=== PATIENT | male | born 1940 | race Caucasian/White ===

== ENCOUNTER 2020-05-21 06:43 | Outpatient (CLI) | payer MEDICARE, MEDICAID, SELFPAY ==
--- NOTE | 2020-05-23 13:37 | SLEEP_ITS ---
Home sleep test. DATE OF STUDY: 05/21/2020 ORDERING PHYSICIAN: Flora Foster MD. REASON FOR THE STUDY: Hypersomnia. HISTORY OF PRESENT ILLNESS: The patient is a 79-year-old man, 62 inches tall weighing 227 pounds with a body mass index of 29.1. He has had many years of excessive sleepiness. He has difficulty waking up on time. When he is on the road, he is falling asleep. He has been off work for 3 months recently. He mainly drives at night. He wakes up during the night at times, he has difficulty waking in the morning. He occasionally awakens from sleep feeling short of breath. He does not have heartburn or belching at night. He frequently snores, but it is not loud enough that others complain about it. He constantly has trouble sleeping with a cold. He occasionally gasps for breath at night. He frequently has breathing problems reported to him by others. He does not sweat excessively at night. He does not complain of irregular heartbeats at night. He frequently falls asleep during the day, frequently involuntarily, but not while driving. He does not have loss of muscle tone with strong emotion. He frequently has daytime difficulties due to sleepiness. He does not feel paralyzed on waking or falling asleep. He does not have vivid dreamlike scenes upon awakening or falling asleep. He constantly is afraid to go to sleep. He denies nightmares, does not have dreams any longer. He frequently has feelings of sadness, depression, and constantly feels anxious. He does not have muscular tension. He does not notice parts of his body jerking, and he does not kick at night. He frequently has crawly achy feelings in his legs and frequently has leg pain at night. He does not have morning jaw pain and does not grind his teeth at night. He is not bothered by pain during the day or at night. He does not wake up feeling stiff in the morning. He occasionally wakes up with sore achy muscles and pain in the neck and spine. He has fatigue, panic, sexual problems, memory problems, insomnia, concentration difficulties, financial problems, headaches, and depression. He is a [place] War vet and the history of things that happened to him changed his life dramatically and still impact him. Normal bedtime is around 6 a.m., taking a long time to fall asleep typically waking twice during his sleep time. During this time, he will go to the bathroom. He does drive a truck at night normally. He estimates 6 to 8 hours of sleep. He does not have a social life. He sometimes takes naps. He may have a power nap on the road and this is very effective to refreshing him. He is usually drowsy in the morning for 2 hours or longer. He feels better in the evening. PAST MEDICAL HISTORY: Hypertension, diarrhea, constipation, kidney stones. MEDICATIONS: Metoprolol 25 mg daily, low-dose aspirin 81 mg a day. HABITS: Does not smoke tobacco. Caffeine, 1 cup a day. No alcohol. DESCRIPTION OF THE STUDY: On the [place] Sleepiness Scale, the score is 18. This was conducted as a portable home sleep test using 4 channel monitoring including respiratory effort channel, snoring channel, oxygen saturation channel, and heart rate channel. The study was scored using [facility] guidelines. The duration of the study was 9 hours 28 minutes. The apnea-hypopnea index was elevated at 17, consistent with moderate sleep apnea. His RDI was 19.7. Oxygen desaturation index 14.9. Lowest desaturation 82%. He had 41 apneas, 93% of these or 38 apneas were obstructive, 7% or 3 apneas were central and he had 117 hypopneas. He had 2849 flow-limited breaths without snoring, 1300 snoring events, and 151 desaturations spending 12 minutes or 2% of the study below 88% saturation. Heart rate ranged from 46 to 87. IMPRESSION:
== END 2020-05-21 06:44 | disposition home or self-care (01) ==
LOC: ANHCSM 06:43
PROVIDERS: Visit Provider Internal Medicine Critical Care Medicine
DX: G47.33 Obstructive sleep apnea (adult) (pediatric) (principal); I10 Essential (primary) hypertension
CPT/HCPCS: 95806

== ENCOUNTER 2022-06-25 13:49 | Inpatient (IN) | payer OTHER, SELFPAY ==
[2022-06-25] VITALS (9 sets, daily range): BP systolic 94–134; BP diastolic 56–78; PULSE 74–103; RESP 16–23; TEMP 36.5–36.8; O2SAT 95–100
--- NOTE | ~2022-06-25 | CT_ITS ---
EXAMINATION: CT abdomen pelvis w con DATE: 06/25/2022 15:29 INDICATION: Hematemesis. Black stool. Lower abdominal pain. TECHNIQUE: Computed tomography (CT) of the abdomen and pelvis was performed with 100 cc Omnipaque 350 intravenous contrast. The dose-length product was 616.16 mGy-cm. Automated exposure control and iter ative reconstruction technique were employed. COMPARISON: CT dated 03/07/2006. FINDINGS: There is a 5 mm right lower lobe nodule. There is dependent atelectasis. There is a 5 mm le ft lower lobe nodule. Heart size normal. No significant pleural or pericardial effusion. The spleen, pancreas, adrenal glands are unremarkable. There are small bilateral renal cysts. Small liver cysts. There is a hiatal hernia. Nonobstructive bowel gas pattern. Colonic diverticulosis without evidence f or diverticulitis. Moderate lumbar spondylosis. IMPRESSION: 1. No findings to account for patient's symptoms. 2: Bilateral lower lobe nodules measuring 5 mm. Recommend follow-up low dose CT chest in 12 months. 3: Small hiatal hernia. Reviewed, dictated and finalized at location A.
[2022-06-25 14:31] LABS: Basophils Percent Auto 0.8 % (0.2-1.2); Eosinophils Absolute Auto 0.2 K/mm3 (0-0.3); Eosinophils Percent Auto 3.4 % (0-4.4); Hematocrit 32.7 % (42.0-52.0); Hemoglobin 10.6 g/dL (14.0-18.0); Immature Granulocyte Absolute 0.05 K/mm3 (0.00-0.031); Lymphocytes Absolute Auto 1.07 K/mm3 (0.9-3.2); Lymphocytes Percent Auto 20.5 % (18.3-44.2); Mean Corpuscular HGB Conc 32.4 g/dl (32-36); Mean Corpuscular Hemoglobin 29.7 pg (26-34); Mean Corpuscular Volume 91.6 fl (80-100); Mean Platelet Volume 9.5 fl (7.4-10.4); Monocytes Absolute Auto 0.4 K/mm3 (0.1-0.6); Monocytes Percent Auto 7.8 % (2.6-8.5); Neutrophils Absolute Auto 3.5 K/mm3 (1.3-6.7); Neutrophils Percent Auto 66.5 % (45.5-73.1); Platelet Count Result 157 k/mm3 (150-375); Red Blood Count 3.57 M/mm3 (4.6-6.20); Red Cell Distribution Width 13.8 % (11.5-14.5); White Blood Count 5.2 K/mm3 (4.5-10.0)
--- NOTE | 2022-06-25 14:33 | ED.GENADULT ---
HPI - General Adult General Chief complaint: GI Bleed <ANU Sofia Last Filed: 06/25/22 18:38> Stated complaint: coffee ground emesis <ANU Sofia Last Filed: 06/25/22 18:38> Time Seen by Provider: 06/25/22 14:23 <ANU Sofia Last Filed: 06/25/22 18:38> History of Present Illness HPI narrative: Patient is a 81-year-old male here for evaluation of an episode of hematemesis and melena today. Patient states that he woke up with some lower abdominal pain, noted that his bowel movement was black this morning, which is never happened in the past. He states he went about his day, and suddenly had an episode of emesis that appeared similar to coffee grounds prompted his ED evaluation. Denies history of alcohol use or ulcers, does use NSAIDs frequently. No fevers, chills, lightheadedness, syncope. No blood thinner use. <ANU Sofia Last Filed: 06/25/22 18:38> Related Data Home medications: Home Medications Medication Instructions Recorded Confirmed ocadpbe-wvdnfekiviakz-pxhaekxh 250 1 tablet PO Q4-6H PRN Pain 11/02/19 06/25/22 mg-250 mg-65 mg tablet (Excedrin Extra Strength) aluminum hydrox-magnesium carb 254 5 ml PO TID PRN Abdominal 06/25/22 06/25/22 mg-237.5 mg/5 mL oral suspension Discomfort (Gaviscon Extra Strength) fluoxetine 40 mg capsule 40 mg PO BID 06/25/22 06/25/22 quetiapine 25 mg tablet (Seroquel) 25 mg PO HS 06/25/22 06/25/22 <ANU Sofia Last Filed: 06/25/22 18:38> Allergies/adverse reactions: Allergies Allergy/AdvReac Type Severity Reaction Status Date / Time No Known Allergies Allergy Verified 06/25/22 15:53 <ANU Sofia Last Filed: 06/25/22 18:38> Review of Systems Review of Systems: Gen: Denies fevers or chills Eyes: Denies eye pain or visual change ENT: Denies congestion Respiratory: Denies shortness of breath or cough CV: Denies chest pain or palpitations GI: Reports abdominal pain, nausea, vomiting, melena denies burning, urgency, frequency or hematuria Musculoskeletal: Denies back pain or muscle pain Neuro: Denies numbness, tingling, weakness or focal weakness Skin: Denies rash Except as documented, all other systems reviewed and negative <Fannie West PA-C - Last Filed: 06/25/22 18:38> [facility] Past Medical History Medical History: Medical History Depression Essential hypertension Insomnia Overweight (BMI 25.0-29.9) <ANU Sofia Last Filed: 06/25/22 18:38> Surgical History Surgical History: Surgical History H/O esophagogastroduodenoscopy <Fannie West PA-C - Last Filed: 06/25/22 18:38> Family History Family History: Family History (Updated 06/25/22 @ 21:28 by Vikki Coon NP) Mother Depression Migraines Father Depression <ANU Sofia Last Filed: 06/25/22 18:38> Social History Social History: Social History (Updated 06/25/22 @ 21:29 by Vikki Coon NP) Social History: The patient has a significant other who is in a fpc in a wheelchair. He does not have a durable power state attorney. He has no children. He is a former smoker. No alcohol marijuana or illicit drugs. 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 Code status full code Smoking status: Former smoker <Fannie West PA-C - Last Filed: 06/25/22 18:38> Exam Narrative: APPEARANCE: Well appearing, no pain in distress, well-nourished. Head: Normocephalic and atraumatic. EYES: PERRLA/EOMI, conjunctivae clear NOSE: No nasal drainage EARS: External ear normal in appearance THROAT: Oropharynx is clear. Mucous membranes are moist. NECK: Supple. No adenopathy,
[2022-06-25 14:42] LABS: INR 1.3; Partial Thromboplastin Time 27.4 SECONDS (22.3-36.8); Prothrombin Time 15.5 Seconds (11.1-14.7)
[2022-06-25 14:44] LABS: Alanine Aminotransferase 17 U/L (6-50); Albumin Level 2.6 g/dL (3.5-5.1); Alkaline Phosphatase 67 U/L (38-126); Anion Gap 4 mmol/L (8-16); Aspartate Amino Transferase 24 U/L (17-59); Bilirubin,Total 0.4 mg/dL (0.2-1.3); Blood Urea Nitrogen 40 mg/dL (9-20); Calcium 7.8 mg/dL (8.4-10.2); Carbon Dioxide 27 mmol/L (22-30); Chloride 107 mmol/L (98-107); Estimated CRCL calculation 60 ml/min; Estimated Glomerular Filt Rate > 60; Glucose 102 mg/dL (65-110); Potassium 4.2 mmol/L (3.4-5.0); Sodium 138 mmol/L (137-145)
[2022-06-25] MEDS: PANTOPRAZOLE SODIUM IV 40 MG VIAL 80 MG IV PUSH (14:45)
[2022-06-25] MEDS: SODIUM CHLORIDE 0.9% IV 1,000 ML 999 ML IV CONT (15:19)
--- NOTE | 2022-06-25 15:25 | WPDANESEPPF ---
Anes - Initial Pre Proc Eval Date/Time: 06/25/22 15:25 Pre Op Diagnosis: coffee ground emesis Patient Data Age: 81 Gender: M Height: 1.85 m Weight: 101 kg Last Vital Signs Temp 36.5 C 06/25/22 13:50 Pulse 103 H 06/25/22 13:50 Resp 20 06/25/22 13:50 BP 113/78 06/25/22 13:50 Pulse Ox 98 06/25/22 13:50 O2 Del Method Room Air 06/25/22 13:50 Allergies Allergy/AdvReac Type Severity Reaction Status Date / Time No Known Allergies Allergy Verified 06/25/22 13:59 Home Medications Medication Instructions Recorded Confirmed Type amddvwy-xsybfwknwvtbz-vkacpdpq 250 1 tablet PO Q4-6H PRN Pain 11/02/19 11/02/19 History mg-250 mg-65 mg tablet (Excedrin Extra Strength) quetiapine 25 mg tablet mg 06/25/22 History Laboratory Tests 06/25/22 06/25/22 06/25/22 14:22 14:22 14:22 WBC 5.2 K/mm3 K/mm3 (4.5-10.0) RBC 3.57 M/mm3 L M/mm3 (4.6-6.20) Hgb 10.6 g/dL L g/dL (14.0-18.0) Hct 32.7 % L % (42.0-52.0) MCV 91.6 fl fl (80-100) MCH 29.7 pg pg (26-34) MCHC 32.4 g/dl g/dl (32-36) RDW 13.8 % % (11.5-14.5) Plt Count 157 k/mm3 k/mm3 (150-375) MPV 9.5 fl fl (7.4-10.4) Immature Gran % (Auto) 1.0 % H % (0-0.5) Neut % (Auto) 66.5 % % (45.5-73.1) Lymph % (Auto) 20.5 % % (18.3-44.2) [place] % (Auto) 7.8 % % (2.6-8.5) Eos % (Auto) 3.4 % % (0-4.4) Baso % (Auto) 0.8 % % (0.2-1.2) Lymph # (Auto) 1.07 K/mm3 K/mm3 (0.9-3.2) [place] # (Auto) 0.4 K/mm3 K/mm3 (0.1-0.6) Eos # (Auto) 0.2 K/mm3 K/mm3 (0-0.3) Baso # (Auto) 0.0 K/mm3 K/mm3 (0.0-0.1) Abs Immat Gran (auto) 0.05 K/mm3 H K/mm3 (0.00-0.031) Absolute Neuts (auto) 3.5 K/mm3 K/mm3 (1.3-6.7) Absolute Nucleated RBC 0.0 K/mm3 K/mm3 (0.0-0.012) Nucleated RBC % 0.0 % % (0.0-0.2) PT 15.5 Seconds H Seconds (11.1-14.7) INR 1.3 APTT 27.4 SECONDS SECONDS (22.3-36.8) Sodium 138 mmol/L mmol/L (137-145) Potassium 4.2 mmol/L mmol/L (3.4-5.0) Chloride 107 mmol/L mmol/L (98-107) Carbon Dioxide 27 mmol/L mmol/L (22-30) Anion Gap 4 mmol/L L mmol/L (8-16) BUN 40 mg/dL H mg/dL (9-20) Creatinine 1.00 mg/dL mg/dL (0.7-1.3) Estim Creat Clear Calc 60 ml/min ml/min Estimated GFR > 60 (59 - ) Glucose 102 mg/dL mg/dL (65-110) Calcium 7.8 mg/dL L mg/dL (8.4-10.2) Total Bilirubin 0.4 mg/dL mg/dL (0.2-1.3) AST 24 U/L U/L (17-59) ALT 17 U/L U/L (6-50) Alkaline Phosphatase 67 U/L U/L (38-126) Total Protein 5.0 g/dL L g/dL (6.3-8.2) Albumin 2.6 g/dL L g/dL (3.5-5.1) Patient hx anesthesia problems: none Family hx anesthesia problems: none Results Review: All pre-operative results and documents have been reviewed as part of the pre-operative evaluation. [facility] Past Medical History Medical History (Updated 06/25/22 @ 15:27 by Babar Cloud MD) Essential hypertension Overweight (BMI 25.0-29.9) Social History Social History (Updated 11/02/19 @ 09:46 by Riddhi Fox) Smoking status: Former smoker Anes - Eval Final PreProcedure Day of Procedure 06/25/22 15:25 Patient weight: obese Heart: regular rate and rhythm Lungs: clear to auscultation and normal air movement Airway: Mallampati scale class II Neurological: alert and oriented Last oral intake: >/= 8 hours ASA classification: III Emergent: no Anesthetic plan: proceed Anesthesia type and monitoring: general GIVS Results Review: All pre-operative results and documents have been reviewed as part of the pre-operative evaluation. Informed Consent: The patient's anesthetic plan and its attendant risks a
--- NOTE | 2022-06-25 15:45 | WPDGICN ---
Assessment and Plan Assessment and plan (1) Melena: Code(s): K92.1 - Melena Status: Acute Assessment and Plan: this morning he had a black stool. He has not done that before because he uses NSAIDs frequently it is most likely due to upper gastrointestinal bleeding. (2) Hematemesis: Code(s): K92.0 - Hematemesis Status: Acute Assessment and Plan: He had what he describes as coffee-ground type emesis late morning today. He denies seeing any red blood in his emesis. (3) Anemia: Code(s): D64.9 - Anemia, unspecified Status: Acute Assessment and Plan: Initial hemoglobin is 10.6. This will likely drop with rehydration. He is being typed and Screened for possible transfusion. his INR is 1.3. He is not on anticoagulants, other than the fact he uses aspirin containing products. (4) Azotemia: Code(s): R79.89 - Other specified abnormal findings of blood chemistry Status: Acute Assessment and Plan: BUN is 40 but creatinine was only 1.0. Likely this is elevated BUN secondary to gastrointestinal bleeding. Plan EGD will be done this afternoon. I explained that there is a possibility of bleeding or perforation due to the procedure itself. GI Consult Note Consult date/time: 06/25/22 15:45 HPI: Feng Calderon is a 81 year old male Who noted that when he had bowel movement this morning that was pitch black. He went about his day And had some breakfast. Then late morning he vomited and saw coffee-ground material in his emesis. He denies being lightheaded or short of breath. He has not had gastrointestinal bleeding in the past. He does take Excedrin on a regular basis for headaches also takes other NSAIDs regularly. Review of Systems Review of Systems: All systems reviewed & are unremarkable except as noted in HPI and below PMFSH Past Medical History Medical History Essential hypertension Overweight (BMI 25.0-29.9) Social History Social History Smoking status: Former smoker Meds Home Medications and Allergies Home Medications Medication Instructions Recorded Confirmed Type ddoghrd-jpegfcmfzpnfi-nmwjltze 250 1 tablet PO Q4-6H PRN Pain 11/02/19 11/02/19 History mg-250 mg-65 mg tablet (Excedrin Extra Strength) quetiapine 25 mg tablet mg 06/25/22 History Allergies Allergy/AdvReac Type Severity Reaction Status Date / Time No Known Allergies Allergy Verified 06/25/22 13:59 Vital Signs Vital Signs - 24 hr 06/25/22 13:50 06/25/22 14:16 Temperature 36.5 C Pulse Rate 103 H 94 Respiratory Rate 20 23 H Blood Pressure 113/78 94/60 L Pulse Oximetry 98 Oxygen Delivery Room Air Exam Const: General: alert Orientation/consciousness: patient oriented x3 Resp: Auscultation: clear to auscultation bilaterally Cardio: Rhythm: regular rhythm GI: GI Palp: Yes Soft to palpation and No Tenderness to palpation present (GI) Auscultation: normal bowel sounds Skin: General skin exam: normal color and no ecchymosis Neuro: General: patient oriented x3 Results Labs CBC & Chem 7: 06/25/22 14:22 06/25/22 14:22 Labs: Short CBC 06/25/22 Range/Units 14:22 WBC 5.2 (4.5-10.0) K/mm3 Hgb 10.6 L (14.0-18.0) g/dL Hct 32.7 L (42.0-52.0) % Plt Count 157 (150-375) k/mm3 BMP 06/25/22 14:22 Sodium 138 Potassium 4.2 Chloride 107 Carbon Dioxide 27 BUN 40 H Creatinine 1.00 Glucose 102 Calcium 7.8 L Liver Function 06/25/22 Range/Units 14:22 Total Bilirubin 0.4 (0.2-1.3) mg/dL AST 24 (17-59) U/L ALT 17 (6-50) U/L Alkaline Phosphatase 67 (38-126) U/L Albumin 2.6 L (3.5-5.1) g/dL AMG Consult Billing Inpatient Consult [id number] Consult Mod High
[2022-06-25] MEDS: LACTATED RINGERS 1,000 ML 150 ML IV CONT (16:24)
[2022-06-25] MEDS: ONDANSETRON INJ 4 MG/2 ML VIAL IV PUSH ×2 (16:58→21:15)
--- NOTE | 2022-06-25 17:02 | PC.NURSE ---
Report received from Vikki briggs.
--- NOTE | 2022-06-25 17:02 | PC.NURSE ---
Vikki stated will attempt to wean to Ra prior to bring to floor currently 98% 2 L NC
--- NOTE | 2022-06-25 17:21 | PC.NURSE ---
This patient, Feng Calderon, was admitted to 3 [facility] Surg Room 326-01. Patient/family oriented to hospital policies and general routines including ID bracelet, bed and alarms, visiting hours, pain management, procedures, bathroom and other care routines, personal items, smoking policy, room service/diet, and visiting hours. Information on how to activate the Rapid Response Team has been discussed. Patient/Family are encouraged to report perceived risks to care and to ask questions if they do not understand what they are told or what they should do. arrived at 1715 report received per Vikki JOHNSON gi lab
[2022-06-25] MEDS: SODIUM CHLORIDE 0.9% IV 1,000 ML 125 ML IV CONT (17:42)
--- NOTE | 2022-06-25 17:50 | PC.NURSE ---
home medication sent to pharmacy for verifying
--- NOTE | 2022-06-25 18:30 | PC.NURSE ---
informed MD Dailey pt is still having bloody dark stools
[2022-06-25 18:31] LABS: Glucose Point of Care 100 mg/dl (65-105)
--- NOTE | 2022-06-25 18:32 | PC.NURSE ---
called to informed Vikki BATISTA pt provider about bloody stools, trending H&H qhrs starting now.
[2022-06-25 19:29] LABS: Hematocrit 33.3 % (42.0-52.0); Hemoglobin 10.9 g/dL (14.0-18.0)
[2022-06-25] MEDS: METOCLOPRAMIDE HCL INJ 10 MG/2 ML VIAL 5 MG IV PUSH (20:14)
--- NOTE | 2022-06-25 21:21 | PM.IMHP ---
H&P: HPI History of Present Illness Date/Time: 06/25/22 21:21 Chief Complaint: Coffee brown emesis Narrative: This is a 81 a year old male patient who came in today for evaluation of hematemesis and melena today. The patient has been taking NSAIDs an aspirin. The patient stated that he woke up with some lower abdominal pain and that his bowel movement was black this morning. He also vomited coffee-ground emesis that prompted him to come to the emergency room for evaluation. He denies any previous history of any alcohol use or any previous peptic ulcers. He is not on any blood thinners. He complains of nausea. GI has been consulted the patient was taken directly to the GI lab for an EGD. The patient was found to have a gastric ulcer and 2 resolution clips were placed. The patient was started on IV fluids in the emergency room and given a dose of Protonix. His H&H initially was 10.6 and 32.7 and a repeat H&H is 10.9 and 33.3. The patient is being admitted to observation and then changed to inpatient status on the date of service of 06/25/2022 Review of Systems Review of Systems: See HPI All systems reviewed & are unremarkable except as noted in HPI and below Constitutional: Constitutional: Reports as per HPI and Reports no additional constitutional complaints Eyes: Eyes: Reports as per HPI and Reports no additional eye complaints ENT: Reports system reviewed and no additional complaints, except as documented and Reports Normal hearing present Cardiovascular: Cardiovascular: Reports no additional cardiovascular complaints Respiratory: Respiratory: Reports no additional respiratory complaints and Reports no additional respiratory complaints Gastrointestinal: Gastrointestinal: Reports as per HPI and Reports no additional gastrointestinal complaints Musculoskeletal: Musculoskeletal: Reports no additional musculoskeletal complaints Integumentary/Breasts: Skin/Breast: Reports system reviewed and no additional complaints, except as docu and Reports as per HPI Neurologic: Reports system reviewed and no additional complaints, except as documented, Reports as per HPI and Reports Normal hearing present Psychiatric: Psychiatric: Reports no additional psychiatric complaints and Reports as per HPI Endocrine: Endocrine: Reports no additional endocrine complaints Hematologic/Lymphatic: Hematologic/Lymphatic: Reports no additional hematologic/lymphatic complaints Allergic/Immunologic: Allergic/Immunologic: Reports no additional allergic/immunologic complaints [facility] Past Medical History Medical History Depression Essential hypertension Insomnia Overweight (BMI 25.0-29.9) Surgical History Surgical History H/O esophagogastroduodenoscopy Family History Family History (Updated 06/25/22 @ 21:28 by Vikki Coon NP) Mother Depression Migraines Father Depression Social History Social History (Updated 06/25/22 @ 21:29 by Vikki Coon NP) Social History: The patient has a significant other who is in a half-way in a wheelchair. He does not have a durable power criminal attorney. He has no children. He is a former smoker. No alcohol marijuana or illicit drugs. 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 Code status full code Smoking status: Former smoker Meds Home Medications and Allergies Home Medications Medication Instructions Recorded Confirmed Type xmtorqe-koshazoojabjh-wtpmbyil 250 1 tablet PO Q4-6H PRN Pain 11/02/19 06/25/22 History mg-250 mg-65 mg tablet (Excedrin Extra Strength) aluminum hydrox-magnesium carb 254 5 ml PO TID PRN Abdominal 06/25/22 06/25/22 History mg-237.5 mg/5 mL oral suspension Discomfort (Gaviscon Extra Strength) fluoxetine 40 mg capsule 40 mg PO BID 06/25/22 0
--- NOTE | 2022-06-25 21:32 | PHAR ---
FLUOXETINE 40MG BID SEROQUEL 25MG HS BOTH HOME MEDS VERIFIED
[2022-06-25 23:33] LABS: Glucose Point of Care 103 mg/dl (65-105)
[2022-06-26 01:06] LABS: Hematocrit 32.3 % (42.0-52.0); Hemoglobin 10.6 g/dL (14.0-18.0)
[2022-06-26] MEDS: ONDANSETRON INJ 4 MG/2 ML VIAL IV PUSH (03:12)
[2022-06-26] MEDS: SODIUM CHLORIDE 0.9% IV 1,000 ML 125 ML IV CONT ×2 (03:12→10:11)
[2022-06-26 05:55] LABS: Glucose Point of Care 106 mg/dl (65-105)
[2022-06-26 06:45] VITALS: BP 115/60; PULSE 91; RESP 16; TEMP 36.8; O2SAT 93
[2022-06-26 06:53] LABS: Basophils Absolute Auto 0.1 K/mm3 (0.0-0.1); Basophils Percent Auto 0.4 % (0.2-1.2); Eosinophils Percent Auto 0.1 % (0-4.4); Hematocrit 29.2 % (42.0-52.0); Hemoglobin 9.7 g/dL (14.0-18.0); Immature Granulocyte Absolute 0.08 K/mm3 (0.00-0.031); Immature Granulocyte Percent A 0.6 % (0-0.5); Lymphocytes Absolute Auto 1.24 K/mm3 (0.9-3.2); Lymphocytes Percent Auto 9.7 % (18.3-44.2); Mean Corpuscular HGB Conc 33.2 g/dl (32-36); Mean Corpuscular Hemoglobin 29.9 pg (26-34); Mean Corpuscular Volume 90.1 fl (80-100); Mean Platelet Volume 9.5 fl (7.4-10.4); Monocytes Absolute Auto 0.8 K/mm3 (0.1-0.6); Monocytes Percent Auto 6.2 % (2.6-8.5); Neutrophils Absolute Auto 10.6 K/mm3 (1.3-6.7); Platelet Count Result 154 k/mm3 (150-375); Red Blood Count 3.24 M/mm3 (4.6-6.20); Red Cell Distribution Width 13.8 % (11.5-14.5); White Blood Count 12.7 K/mm3 (4.5-10.0)
[2022-06-26 07:25] LABS: Alanine Aminotransferase 17 U/L (6-50); Albumin Level 2.9 g/dL (3.5-5.1); Alkaline Phosphatase 61 U/L (38-126); Anion Gap 5 mmol/L (8-16); Aspartate Amino Transferase 24 U/L (17-59); Blood Urea Nitrogen 35 mg/dL (9-20); Carbon Dioxide 25 mmol/L (22-30); Chloride 106 mmol/L (98-107); Estimated CRCL calculation 60 ml/min; Estimated Glomerular Filt Rate > 60; Glucose 107 mg/dL (65-110); Potassium 4.1 mmol/L (3.4-5.0); Sodium 136 mmol/L (137-145)
[2022-06-26] MEDS: PANTOPRAZOLE SODIUM IV 40 MG VIAL IV PUSH ×2 (08:43→22:51)
--- NOTE | 2022-06-26 09:23 | WPDANESPN ---
Anes - Prog Note Post-Op Date/Time: 06/26/22 09:23 Cardiovascular status: normal Respiratory status: normal Airway patency: baseline Mental status: baseline Post-Op hydration status: normal Vital Signs: Last Vital Signs Temp 98.3 F 06/26/22 06:45 Pulse 91 06/26/22 06:45 Resp 16 06/26/22 06:45 BP 115/60 06/26/22 06:45 Pulse Ox 93 06/26/22 06:45 O2 Del Method Room Air 06/25/22 20:00 O2 Flow Rate 2 06/25/22 16:53 Pain Score (VAS): 0 I/O: Intake & Output 06/25/22 06/26/22 06/26/22 23:59 07:59 15:59 Intake Total 600 1000 Output Total 500 950 Balance 100 50 Laboratory Tests 06/26/22 06:35 06/26/22 06:35 06/25/22 06/25/22 06/25/22 14:22 14:22 14:22 WBC 5.2 RBC 3.57 L Hgb 10.6 L Hct 32.7 L MCV 91.6 MCH 29.7 MCHC 32.4 RDW 13.8 Plt Count 157 MPV 9.5 Immature Gran % (Auto) 1.0 H Neut % (Auto) 66.5 Lymph % (Auto) 20.5 [place] % (Auto) 7.8 Eos % (Auto) 3.4 Baso % (Auto) 0.8 Lymph # (Auto) 1.07 [place] # (Auto) 0.4 Eos # (Auto) 0.2 Baso # (Auto) 0.0 Abs Immat Gran (auto) 0.05 H Absolute Neuts (auto) 3.5 Absolute Nucleated RBC 0.0 Nucleated RBC % 0.0 PT 15.5 H INR 1.3 APTT 27.4 Sodium 138 Potassium 4.2 Chloride 107 Carbon Dioxide 27 Anion Gap 4 L BUN 40 H Creatinine 1.00 Estim Creat Clear Calc 60 Estimated GFR > 60 Glucose 102 POC Capillary Glucose Calcium 7.8 L Ferritin Total Bilirubin 0.4 AST 24 ALT 17 Alkaline Phosphatase 67 Total Protein 5.0 L Albumin 2.6 L Blood Type Antibody Screen 06/25/22 06/25/22 06/25/22 14:22 18:27 19:24 WBC RBC Hgb 10.9 L Hct 33.3 L MCV MCH MCHC RDW Plt Count MPV Immature Gran % (Auto) Neut % (Auto) Lymph % (Auto) [place] % (Auto) Eos % (Auto) Baso % (Auto) Lymph # (Auto) [place] # (Auto) Eos # (Auto) Baso # (Auto) Abs Immat Gran (auto) Absolute Neuts (auto) Absolute Nucleated RBC Nucleated RBC % PT INR APTT Sodium Potassium Chloride Carbon Dioxide Anion Gap BUN Creatinine Estim Creat Clear Calc Estimated GFR Glucose POC Capillary Glucose 100 Calcium Ferritin Total Bilirubin AST ALT Alkaline Phosphatase Total Protein Albumin Blood Type O Positive Antibody Screen Negative 06/25/22 06/26/22 06/26/22 23:30 00:34 00:34 WBC RBC Hgb 10.6 L Hct 32.3 L MCV MCH MCHC RDW Plt Count MPV Immature Gran % (Auto) Neut % (Auto) Lymph % (Auto) [place] % (Auto) Eos % (Auto) Baso % (Auto) Lymph # (Auto) [place] # (Auto) Eos # (Auto) Baso # (Auto) Abs Immat Gran (auto) Absolute Neuts (auto) Absolute Nucleated RBC Nucleated RBC % PT INR APTT Sodium Potassium Chloride Carbon Dioxide Anion Gap BUN Creatinine Estim Creat Clear Calc Estimated GFR Glucose POC Capillary Glucose 103 Calcium Ferritin 116.00 Total Bilirubin AST ALT Alkaline Phosphatase Total Protein Albumin Blood Type Antibody Screen 06/26/22 06/26/22 06/26/22 05:51 06:35 06:35 WBC 12.7 H RBC 3.24 L Hgb 9.7 L Hct 29.2 L MCV 90.1 MCH 29.9 MCHC 33.2 RDW 13.8 Plt Count 154 MPV 9.5 Immature Gran % (Auto) 0.6 H Neut % (Auto) 83.0 H Lymph % (Auto) 9.7 L [place] % (Auto) 6.2 Eos % (Auto) 0.1 Baso % (Auto) 0.4 Lymph # (Auto) 1.24 [place] # (Auto) 0.8 H Eos # (Auto) 0.0 Baso # (Auto) 0.1 Abs Immat Gran (auto) 0.08 H Absolute Neuts (auto) 10.6 H Absolute Nucleated RBC 0.0 Nucleated RBC % 0.0 PT INR APTT Sodium 136 L Potassium 4.1 Chloride 106 Carbon Dioxide 25 Anion Gap 5 L BUN 35 H Creatinine 1.00
--- NOTE | 2022-06-26 11:00 | PM.IMPN ---
Progress Note: A&P Assessment and Plan (1) Upper GI bleed: Code(s): K92.2 - Gastrointestinal hemorrhage, unspecified Status: Acute Assessment and Plan: -the patient was taken to the GI lab and had an EGD. Two resolution clips were placed. -patient is NPO except for ice chips. -H&H every 6 hours. -GI to follow -continue with PPI -home Gaviscon on hold at this time -continue with IV fluid. -avoid anything with aspirin and avoid NSAIDs (2) Insomnia: Code(s): G47.00 - Insomnia, unspecified Status: Acute Assessment and Plan: -continue home Seroquel (3) Depression: Code(s): F32.A - Depression, unspecified Status: Acute Assessment and Plan: -continue with his fluoxetine. -trend mood (4) Anemia: Code(s): D64.9 - Anemia, unspecified Status: Acute Assessment and Plan: -current H&H 9.7/29.2 -H&H every 6 hours. -appears to be acute blood loss anemia -anemia labs in a.m. -trend labs -transfuse if hemoglobin less than 7 Time Spent With Patient Time with patient: Greater than 35 minutes Subjective Date/time seen: 06/26/22 12:42 Interval history: 06/26/22 1100 Patient was lying in bed. Patient states that he feels okay today. His biggest complaint is that he is hungry. He denies any pain, chest pain, shortness of breath, nausea, vomiting, diarrhea, constipation. He was more interested in his nasal spray as he said that he is having congestion without it. Hemoglobin hematocrit are stable today at 9.7/29.2. Will continue to trend q.6H. 06/25/22? 21:21 This is a 81 a year old male patient who came in today for evaluation of hematemesis and melena today.? The patient has been taking NSAIDs an aspirin.? The patient stated that he woke up with some lower abdominal pain and that his bowel movement was black this morning.? He also vomited coffee-ground emesis that prompted him to come to the emergency room for evaluation.? He denies any previous history of any alcohol use or any previous peptic ulcers.? He is not on any blood thinners.? He complains of nausea.? GI has been consulted the patient was taken directly to the GI lab for an EGD.? The patient was found to have a gastric ulcer and 2 resolution clips were placed.? The patient was started on IV fluids in the emergency room and given a dose of Protonix.? His H&H initially was 10.6 and 32.7 and a repeat H&H is 10.9 and 33.3.? The patient is being admitted to observation and then changed to inpatient status on the date of service of 06/25/2022 Review of Systems Review of Systems: All systems reviewed & are unremarkable except as noted in HPI and below Exam Const: General: cooperative, healthy appearing, comfortable, no acute distress, well developed, alert, awake and Physically active Nutritional Appearance: average body habitus and well nourished Orientation/consciousness: oriented to person, oriented to place, oriented to time and patient oriented x3 Limitations: no limitations HENMT: Head: normal to inspection, No palpable skull fracture present, normocephalic, atraumatic and abrasion Ears: hearing grossly normal bilaterally and external ears normal General nose exam: Normal external nose present and Normal nares present Eyes: General: appearance normal, both eyes and all related structures Alignment and Position: alignment normal Periorbital: periorbital findings normal Eyelids: eyelids normal Sclera: sclerae normal Pupils: Equal, round and reactive pupils present EOM: EOMs intact bilaterally Neck: Neck: normal visual inspection, full ROM, no lymphadenopathy, trachea midline and supple Chest: Chest palpation & inspection: normal inspection of the chest Resp: Effort & Inspection: normal respiratory effort Auscultation: clear to auscultation bilaterally Cardio: Palpation: normal PMI Rate: regular rate Rhythm: regular rhythm Heart sounds: S1
[2022-06-26 11:38] LABS: Glucose Point of Care 99 mg/dl (65-105)
[2022-06-26 12:38] LABS: Hematocrit 26.5 % (42.0-52.0); Hemoglobin 8.9 g/dL (14.0-18.0)
[2022-06-26 14:00] VITALS: BP 122/67; PULSE 95; RESP 16; TEMP 37.2; O2SAT 96
--- NOTE | 2022-06-26 14:43 | WPDGIPROGNO ---
Progress Note: A&P Assessment and Plan (1) Gastric ulcer: Code(s): K25.9 - Gastric ulcer, unspecified as acute or chronic, without hemorrhage or perforation Status: Acute Assessment and Plan: no more signs of bleeding, treated with clips yesterday ok to resume diet monitor for any sign of bleeding trend h/h iv protonix egd in 6 weeks (2) Upper GI bleed: Code(s): K92.2 - Gastrointestinal hemorrhage, unspecified Status: Acute (3) Hematemesis: Code(s): K92.0 - Hematemesis Status: Acute Assessment and Plan: resolved (4) Acute blood loss anemia: Code(s): D62 - Acute posthemorrhagic anemia Status: Acute Assessment and Plan: trend h/h Subjective Date/time seen: 06/26/22 14:43 Interval history: egd yesterday with non-bleeding gastric ulcer treated with clipsx2. Patient denies any pain or more bleeding, he is comfortable and is hungry (still npo) Review of Systems Review of Systems: All systems reviewed & are unremarkable except as noted in HPI and below Exam Const: General: comfortable and no acute distress HENMT: General nose exam: Normal nares present Eyes: General: appearance normal, both eyes and all related structures Neck: Neck: no JVD Resp: Auscultation: clear to auscultation bilaterally Cardio: Rate: regular rate Rhythm: regular rhythm GI: Inspection: non-distended GI Palp: Yes Soft to palpation Skin: General skin exam: normal color Neuro: General: gait normal Speech: normal speech Extrem: General: normal to inspection Psych: Mental Status: mental status grossly normal Objective Data Vital Signs Vital Signs: Vital Signs - 24 hr 06/25/22 15:55 06/25/22 15:00 06/25/22 15:35 Temperature Pulse Rate 76 96 87 Respiratory Rate 20 16 16 Blood Pressure 134/63 96/67 L 133/72 Pulse Oximetry 95 98 98 Oxygen Delivery Room Air Oxygen Flow Rate 06/25/22 16:33 06/25/22 16:43 06/25/22 16:53 Temperature Pulse Rate 76 74 89 Respiratory Rate 18 20 20 Blood Pressure 103/56 L 123/72 124/71 Pulse Oximetry 98 100 100 Oxygen Delivery Nasal Cannula Nasal Cannula Nasal Cannula Oxygen Flow Rate 4 2 2 06/25/22 20:00 06/25/22 22:07 06/26/22 06:45 Temperature 98.2 F 98.3 F Pulse Rate 101 H 91 Respiratory Rate 18 16 Blood Pressure 114/69 115/60 Pulse Oximetry 96 93 Oxygen Delivery Room Air Oxygen Flow Rate 06/26/22 08:40 06/26/22 14:00 Temperature 99.0 F Pulse Rate 95 Respiratory Rate 16 Blood Pressure 122/67 Pulse Oximetry 96 Oxygen Delivery Room Air Oxygen Flow Rate Intake/Output Intake/Output: Intake & Output 06/23/22 06/24/22 06/25/22 06/26/22 23:59 23:59 23:59 23:59 Intake Total 600 2000 Output Total 500 950 Balance 100 1050 Meds/Results Medications: Active Medications Generic Name Dose Route Start Last Admin Trade Name Freq PRN Reason Stop Dose Admin Diphenhydramine HCl 25 mg 06/25/22 21:19 Diphenhydramine Hcl Inj 50 Mg/Ml Vial IV PUSH Q4H PRN Itching and or insomnia Home Med 1 each 06/25/22 21:00 06/26/22 11:00 Home Med Fluoxetine Hcl 40 Mg Capsule PO 07/25/22 20:59 1 each Q12HR DILMA Administration Home Med 1 each 06/26/22 21:00 Home Medication Quetiapine 25mg Tablet PO 07/26/22 20:59 HS DILMA Sodium Chloride 1,000 mls @ 75 mls/hr 06/25/22 16:35 06/26/22 14:37 Normal Saline Iv IV CONT 75 mls/hr .[id number] DILMA Infusion Ondansetron HCl 4 mg 06/25/22 16:35 06/26/22 03:12 Ondansetron Inj 4 Mg/2 Ml Vial IV PUSH 4 mg Q4H PRN Administration Nausea Pantoprazole Sodium 40 mg 06/26/22 09:00 06/26/22 08:43 Pantoprazole Sodium Iv 40 Mg Vial IV PUSH 40 mg Q12HR DILMA Administration Radiology Results: ITS Impressions Abdomen/Pelvis CT 06/25/22 15:41 IMPRESSION: 1. No findings to account for patient's symptoms. 2: Bilateral lower lobe nodules measuring 5 mm. Recommend follow-up
[2022-06-26 18:01] VITALS: BMI 32.0
[2022-06-26 19:08] LABS: Hematocrit 26.1 % (42.0-52.0); Hemoglobin 8.7 g/dL (14.0-18.0)
[2022-06-26 20:40] VITALS: PULSE 97; RESP 20; O2SAT 98
[2022-06-26] MEDS: SODIUM CHLORIDE 0.9% IV 1,000 ML 75 ML IV CONT (20:43)
[2022-06-26 22:00] VITALS: BP 135/72; PULSE 97; RESP 20; TEMP 36.6; O2SAT 98
[2022-06-27] MEDS: ACETAMINOPHEN 325 MG TABLET 650 MG PO (05:50)
[2022-06-27 06:00] VITALS: BP 125/71; PULSE 100; RESP 20; TEMP 36.6; O2SAT 91
[2022-06-27 06:18] LABS: Transferrin 108 mg/dL (206-381)
[2022-06-27 06:45] LABS: Iron 55 ug/dL (49-181)
[2022-06-27 06:54] LABS: Percent Iron Saturation 30 % (20-50)
[2022-06-27 07:17] LABS: Folic Acid 5.4 ng/mL (2.76->20)
[2022-06-27 08:35] LABS: Basophils Percent Auto 0.6 % (0.2-1.2); Eosinophils Absolute Auto 0.1 K/mm3 (0-0.3); Eosinophils Percent Auto 2.8 % (0-4.4); Hematocrit 24.7 % (42.0-52.0); Hemoglobin 8.2 g/dL (14.0-18.0); Immature Granulocyte Absolute 0.04 K/mm3 (0.00-0.031); Immature Granulocyte Percent A 0.8 % (0-0.5); Lymphocytes Absolute Auto 0.99 K/mm3 (0.9-3.2); Lymphocytes Percent Auto 19.8 % (18.3-44.2); Mean Corpuscular HGB Conc 33.2 g/dl (32-36); Mean Corpuscular Hemoglobin 30.4 pg (26-34); Mean Corpuscular Volume 91.5 fl (80-100); Mean Platelet Volume 10.4 fl (7.4-10.4); Monocytes Absolute Auto 0.3 K/mm3 (0.1-0.6); Monocytes Percent Auto 5.8 % (2.6-8.5); Neutrophils Absolute Auto 3.5 K/mm3 (1.3-6.7); Neutrophils Percent Auto 70.2 % (45.5-73.1); Platelet Count Result 124 k/mm3 (150-375); Red Cell Distribution Width 14.1 % (11.5-14.5)
[2022-06-27 08:46] LABS: Alanine Aminotransferase 16 U/L (6-50); Albumin Level 2.5 g/dL (3.5-5.1); Alkaline Phosphatase 61 U/L (38-126); Anion Gap 5 mmol/L (8-16); Aspartate Amino Transferase 24 U/L (17-59); Bilirubin,Total 0.6 mg/dL (0.2-1.3); Blood Urea Nitrogen 20 mg/dL (9-20); Carbon Dioxide 25 mmol/L (22-30); Chloride 106 mmol/L (98-107); Estimated CRCL calculation 63 ml/min; Estimated Glomerular Filt Rate > 60; Glucose 100 mg/dL (65-110); Potassium 3.7 mmol/L (3.4-5.0); Sodium 136 mmol/L (137-145)
--- NOTE | 2022-06-27 09:15 | PM.DS ---
DS: Admitting Diagnosis Discharge Date 06/27/2215 Admitting Diagnosis GI bleed DS: Discharge Diagnosis Discharge Diagnosis (1) Upper GI bleed: Code(s): K92.2 - Gastrointestinal hemorrhage, unspecified Status: Acute Assessment and Plan: -the patient was taken to the GI lab and had an EGD. Two resolution clips were placed. -Diet advanced and patient tolerating food -H&H every 6 hours. -GI to follow -continue with PPI -home Gaviscon on hold at this time -continue with IV fluid. -avoid anything with aspirin and avoid NSAIDs (2) Insomnia: Code(s): G47.00 - Insomnia, unspecified Status: Acute Assessment and Plan: -continue home Seroquel (3) Depression: Code(s): F32.A - Depression, unspecified Status: Acute Assessment and Plan: -continue with his fluoxetine. -trend mood (4) Anemia: Code(s): D64.9 - Anemia, unspecified Status: Acute Assessment and Plan: -current H&H 8.2/24.7 -H&H every 6 hours. -appears to be acute blood loss anemia -anemia labs in a.m. -trend labs -transfuse if hemoglobin less than 7 DS: Summary Hospital Course Hospital Course: patient is 81-year-old male with past medical history of anxiety, depression, hypertension who presented to the ED with complaints hematocrit this and melena. Patient had been noted to to take NSAIDs and every day. Upon arrival it was noted that the patient was having GI bleed. GI was consulted and was taken to have an EGD. Upon examination patient was noted have a gastric ulcer and 2 resolution clips were placed. Patient was started on IV fluids and was given Protonix. H&H initially was 10.6/32.7. Currently H&H is 8.2/24.7. Patient denies any current complaints and is eating okay. He did state that he has no energy however According to him he is not a morning person. H&H has been on trend with no consistent drop. Anemia labs are drawn and shown iron 55, TIBC 186, % saturation 30, transferrin 108, ferritin 148, B12 240 folate 5.4. Patient remained stable per labs and vital signs for discharge at this time. Patient will be returning home where he has a caregiver. Patient will need an EGD in 6 weeks and will need to follow up with Dr. Dailey in the office. Time spent discussing smoking cessation with patient: more than 10 minutes Status at Discharge Functional status at discharge: uses cane/walker Overall status at discharge: patient is progressing back to baseline Time Spent with Patient Time attestation: Total time spent providing and/or coordinating discharge services: 36 minutes Time spent: Greater than 30 minutes Specific discharge activities: Diagnostic testing, chart review, developing a treatment plan, education, care coordination documentation, physical exam, result review Exam Const: General: cooperative, healthy appearing, comfortable, no acute distress, well developed, alert, awake and Physically active Nutritional Appearance: average body habitus and well nourished Orientation/consciousness: oriented to person, oriented to place, oriented to time and patient oriented x3 Limitations: no limitations HENMT: Head: normal to inspection, No palpable skull fracture present, normocephalic, atraumatic and abrasion Ears: hearing grossly normal bilaterally and external ears normal General nose exam: Normal external nose present and Normal nares present Eyes: General: appearance normal, both eyes and all related structures Alignment and Position: alignment normal Periorbital: periorbital findings normal Eyelids: eyelids normal Sclera: sclerae normal Pupils: Equal, round and reactive pupils present EOM: EOMs intact bilaterally Neck: Neck: normal visual inspection, full ROM, no lymphadenopathy, trachea midline and supple Chest: Chest palpation & inspection: normal inspection of the chest Resp: Effort & Inspection: normal respiratory effor
[2022-06-27] MEDS: PANTOPRAZOLE SODIUM IV 40 MG VIAL IV PUSH (09:19)
[2022-06-27] MEDS: SODIUM CHLORIDE 0.9% IV 1,000 ML 75 ML IV CONT (10:53)
[2022-06-27 11:55] LABS: Hematocrit 24.4 % (42.0-52.0); Hemoglobin 8.1 g/dL (14.0-18.0)
--- NOTE | 2022-06-27 12:23 | WPDGIPROGNO ---
Progress Note: A&P Assessment and Plan (1) Gastric ulcer: Code(s): K25.9 - Gastric ulcer, unspecified as acute or chronic, without hemorrhage or perforation Status: Acute Assessment and Plan: no more signs of bleeding, treated with clips tolerating diet hb low but stable he can go home with protonix twice daily and repeat egd in 6 weeks (2) Upper GI bleed: Code(s): K92.2 - Gastrointestinal hemorrhage, unspecified Status: Acute Assessment and Plan: resolved (3) Hematemesis: Code(s): K92.0 - Hematemesis Status: Acute Assessment and Plan: resolved (4) Acute blood loss anemia: Code(s): D62 - Acute posthemorrhagic anemia Status: Acute Assessment and Plan: relatively stable h/h Subjective Date/time seen: 06/27/22 12:23 Interval history: no more signs of bleeding, he is doing well and tolerated diet Review of Systems Review of Systems: All systems reviewed & are unremarkable except as noted in HPI and below Exam Const: General: comfortable and no acute distress HENMT: General nose exam: Normal nares present Eyes: General: appearance normal, both eyes and all related structures Neck: Neck: no JVD Resp: Auscultation: clear to auscultation bilaterally Cardio: Rate: regular rate Rhythm: regular rhythm GI: Inspection: non-distended GI Palp: Yes Soft to palpation Skin: General skin exam: normal color Neuro: General: gait normal Speech: normal speech Extrem: General: normal to inspection Psych: Mental Status: mental status grossly normal Objective Data Vital Signs Vital Signs: Vital Signs - 24 hr 06/26/22 14:00 06/26/22 22:00 06/26/22 20:40 Temperature 99.0 F 97.9 F Pulse Rate 95 97 97 Respiratory Rate 16 20 20 Blood Pressure 122/67 135/72 Pulse Oximetry 96 98 98 Oxygen Delivery Room Air 06/27/22 06:00 06/27/22 09:20 Temperature 97.8 F Pulse Rate 100 Respiratory Rate 20 Blood Pressure 125/71 Pulse Oximetry 91 Oxygen Delivery Room Air Intake/Output Intake/Output: Intake & Output 06/24/22 06/25/22 06/26/22 06/27/22 23:59 23:59 23:59 23:59 Intake Total 600 3360 1815 Output Total 500 1480 550 Balance 100 1880 1265 Meds/Results Medications: Active Medications Generic Name Dose Route Start Last Admin Trade Name Lexa PRN Reason Stop Dose Admin Acetaminophen 650 mg 06/27/22 04:36 06/27/22 05:50 Acetaminophen 325 Mg Tablet PO 650 mg Q4H PRN Administration Headache Diphenhydramine HCl 25 mg 06/25/22 21:19 Diphenhydramine Hcl Inj 50 Mg/Ml Vial IV PUSH Q4H PRN Itching and or insomnia Home Med 1 each 06/25/22 21:00 06/27/22 09:20 Home Med Fluoxetine Hcl 40 Mg Capsule PO 07/25/22 20:59 1 each Q12HR DILMA Administration Home Med 1 each 06/26/22 21:00 06/26/22 22:49 Home Medication Quetiapine 25mg Tablet PO 07/26/22 20:59 1 each HS DILMA Administration Ondansetron HCl 4 mg 06/25/22 16:35 06/26/22 03:12 Ondansetron Inj 4 Mg/2 Ml Vial IV PUSH 4 mg Q4H PRN Administration Nausea Pantoprazole Sodium 40 mg 06/26/22 09:00 06/27/22 09:19 Pantoprazole Sodium Iv 40 Mg Vial IV PUSH 40 mg Q12HR DILMA Administration Radiology Results: ITS Impressions Abdomen/Pelvis CT 06/25/22 15:41 IMPRESSION: 1. No findings to account for patient's symptoms. 2: Bilateral lower lobe nodules measuring 5 mm. Recommend follow-up low dose CT chest in 12 months. 3: Small hiatal hernia. Labs Labs: Laboratory Results - last 24 hr 06/26/22 06/26/22 06/27/22 12:23 19:00 05:16 WBC 5.0 RBC 2.70 L Hgb 8.9 L 8.7 L 8.2 L Hct 26.5 L 26.1 L 24.7 L MCV 91.5 MCH 30.4 MCHC 33.2 RDW 14.1 Plt Count 124 L MPV 10.4 Immature Gran % (Auto) 0.8 H Neut % (Auto) 70.2 Lymph % (Auto) 19.8 [place] % (Auto) 5.8 Eos % (Auto) 2.8 Baso % (Auto) 0.6 Lymph # (Auto) 0.99 [place] # (Auto)
[2022-06-27 14:00] VITALS: BP 89/51; PULSE 73; RESP 14; TEMP 36.6; O2SAT 95
[2022-06-27 14:10] VITALS: BP 98/62
[2022-06-27 14:57] VITALS: BP 132/79; PULSE 85
--- NOTE | 2022-06-27 15:00 | PC.NURSE ---
Patient was in a deep sleep when the BP taken at 1400 and waking up at 1410. Patient up walking around no dizziness and sit down for BP at 1457.
--- NOTE | 2022-06-27 15:05 | PC.NURSE ---
Home medication returned.
== END 2022-06-27 15:05 | disposition home or self-care (01) | DRG 378 ==
LOC: ANHED 14:47 → ANHENDO 15:42 → ANH3MEDSUR 17:19
PROVIDERS: Internal Medicine; Nurse Practitioner; Admitting Provider Internal Medicine Gastroenterology; Emergency Provider Emergency Medicine; Visit Provider Nurse Practitioner
PROC: 0DJ08ZZ Inspection of Upper Intestinal Tract, Via Natural or Artificial Opening Endoscopic (ICD-10-PCS; CPT 43235; principal; 2022-06-25 15:30)
DX: K25.4 Chronic or unspecified gastric ulcer with hemorrhage (principal); D62 Acute posthemorrhagic anemia; F32.A Depression, unspecified; F41.9 Anxiety disorder, unspecified; G47.00 Insomnia, unspecified; I10 Essential (primary) hypertension; R79.89 Other specified abnormal findings of blood chemistry; Z79.1 Long term (current) use of non-steroidal anti-inflammatories (NSAID); Z79.82 Long term (current) use of aspirin; Z87.891 Personal history of nicotine dependence
CPT/HCPCS: 36415; 74177; 80053; 82607; 82728; 82746; 82948; 83540; 83550; 84466; 85014; 85018; 85025; 85610; 85730; 86850; 86900; 86901; 87081; 96374; 99285; A9270; C9113; J2405; J2704; J2765; J7030; J7120; Q9967